=== PATIENT | male | born 1940 | race Caucasian/White ===

== ENCOUNTER → 2016-09-22 | Outpatient (CLI) | payer MEDICARE, OTHER | LOC: MW.CHIM 08:00 | PROVIDERS: ATTEND Internal Medicine | DX: I10 Essential (primary) hypertension (principal); J01.90 Acute sinusitis, unspecified; E03.9 Hypothyroidism, unspecified; R97.20 Elevated prostate specific antigen [PSA] | CPT/HCPCS: 99214 ==

== ENCOUNTER 2016-11-10 14:53 | Inpatient (IN) | payer MEDICARE, OTHER ==
[~2016-11-10 14:53] MED LIST: Ampicillin 2 GM in Sodium Chloride 0.9% 100 ML IV SCH; Ampicillin 2 GM in Sodium Chloride 0.9% 50 ML IV SCH; Lactated Ringers 1,000 ML IV SCH
[2016-11-10] MEDS: Ampicillin 2 GM in Sodium Chloride 0.9% 100 ML IV SCH ×3 (16:16→21:19)
[2016-11-11] MEDS: Ampicillin 2 GM in Sodium Chloride 0.9% 100 ML IV SCH ×4 (04:49→21:23)
[2016-11-11 05:48] LABS: CHLORIDE,CL 108 mmol/L (98-110); SODIUM,NA 141 mmol/L (136-146)
--- NOTE | 2016-11-11 10:45 | PCM.PREANE ---
Preanesthetic Assessment - Anesthesia/Transfusion/Family Hx Anesthesia History: Prior Anesthesia Without Reaction Family History of Anesthesia Reaction: No Transfusion History: No Prior Transfusion(s) - Review of Systems General: No Symptoms Pulmonary: No Symptoms Cardiovascular: No Symptoms Gastrointestinal: No symptoms Neurological: No Symptoms Other: Reports: None - Physical Assessment NPO Status Date: 11/10/16 O2 Sat by Pulse Oximetry: 92 Respiratory Rate: 16 Vital Signs: Last Vital Signs Temp 37.1 C 11/11/16 08:00 Pulse 74 11/11/16 08:00 Resp 16 11/11/16 08:00 BP 152/83 H 11/11/16 08:00 Pulse Ox 92 L 11/11/16 08:00 Height: 1.85 m Weight: 93.259 kg ASA Class: 2 Mental Status: Alert & Oriented x3 Airway Class: Mallampati = 3 ROM/Head Extension: Limited/Partial Lungs: Clear to auscultation, Normal respiratory effort Cardiovascular: Regular Rate, Regular Rhythm - Lab Values: Laboratory Last Values WBC 4.98 K/uL (4.0-11.0) 11/11/16 04:48 RBC 4.34 M/uL (4.50-5.90) L 11/11/16 04:48 Hgb 12.5 g/dL (13.0-17.0) L 11/11/16 04:48 Hct 39.6 % (38.0-50.0) 11/11/16 04:48 MCV 91.2 fL (80.0-98.0) 11/11/16 04:48 MCH 28.8 pg (27.0-32.0) 11/11/16 04:48 MCHC 31.6 g/dL (31.0-37.0) 11/11/16 04:48 RDW Std Deviation 43.6 fl (28.0-62.0) 11/11/16 04:48 RDW Coeff of Judy 13 % (11.0-15.0) 11/11/16 04:48 Plt Count 261 K/uL (150-400) 11/11/16 04:48 MPV 9.20 fL (7.40-12.00) 11/11/16 04:48 Neut % (Auto) 58.1 % (48.0-80.0) 11/11/16 04:48 Lymph % (Auto) 26.9 % (16.0-40.0) 11/11/16 04:48 [place] % (Auto) 9.0 % (0.0-15.0) 11/11/16 04:48 Eos % (Auto) 5.0 % (0.0-7.0) 11/11/16 04:48 Baso % (Auto) 1.0 % (0.0-1.5) 11/11/16 04:48 Neut # (Auto) 2.9 K/uL (1.4-5.7) 11/11/16 04:48 Lymph # (Auto) 1.3 K/uL (0.6-2.4) 11/11/16 04:48 [place] # (Auto) 0.5 K/uL (0.0-0.8) 11/11/16 04:48 Eos # (Auto) 0.3 K/uL (0.0-0.7) 11/11/16 04:48 Baso # (Auto) 0.1 K/uL (0.0-0.1) 11/11/16 04:48 Nucleated RBC % 0.0 /100WBC 11/11/16 04:48 Nucleated RBCs # 0 K/uL 11/11/16 04:48 Sodium 141 mmol/L (136-146) 11/11/16 04:48 Potassium 4.2 mmol/L (3.5-5.1) 11/11/16 04:48 Chloride 108 mmol/L (98-110) 11/11/16 04:48 Carbon Dioxide 26 mmol/L (21-31) 11/11/16 04:48 BUN 13 mg/dL (6.0-23.0) 11/11/16 04:48 Creatinine 0.8 mg/dL (0.6-1.5) 11/11/16 04:48 Est Cr Clr Drug Dosing 88.78 mL/min 11/11/16 04:48 Estimated GFR (MDRD) > 60.0 ml/min 11/11/16 04:48 Glucose 100 mg/dL (60-110) 11/11/16 04:48 Calcium 8.5 mg/dL (8.8-10.8) L 11/11/16 04:48 - Allergies Allergies/Adverse Reactions: Allergies Allergy/AdvReac Type Severity Reaction Status Date / Time shellfish derived Allergy Mild Swelling Verified 11/10/16 15:37 - Anesthesia Plan Pre-Op Medication Ordered: None - Acknowledgements Anesthesia Type Planned: Spinal Pt an Appropriate Candidate for the Planned Anesthesia: Yes Alternatives and Risks of Anesthesia Discussed w Pt/Guardian: Yes Pt/Guardian Understands and Agrees with Anesthesia Plan: Yes Additional Comments: PMH: mild to moderate , thyroid replacement, limitation of mouth opening and cervical extension PreAnesthesia Questionnaire HEENT History: Reports: Impaired Vision Gastrointestinal History: Reports: Diverticulosis Genitourinary History: Reports: BPH, Renal Calculus Endocrine/Metabolic History: Reports: Hypothyroidism Hematologic History: Reports: Anemia Other Hematologic History: Chronic iron deficiency - Infectious Disease History Infectious Disease History: Reports: Hepatitis non A,B,C, Mononucleosis, Mumps - Past Surgical History HEENT Surgical History: Reports: Adenoidectomy, Tonsillectomy GI Surgical History: Reports: Appendectomy, Colonoscopy Other GI Surgeries/Procedures: Colonoscopy X 3 (3 years ago latest) Endocrine Surgical History: Reports: None - SUBSTANCE USE Smoking Status *Q: Never Smoker Second Hand Smoke Exposure: No Days Per Week of Alcohol Use: 7 Number of Drinks Per Day: 2 Total Drinks Per Week: 14 Date of Last Drink: 11/10/16 Time of Last Drink: 21:00 Recreational Drug Use History: No - HOME MEDS Home Medications: Home Meds Aspirin [[place] Aspirin] 81 mg PO DAILY 09/28/14 [History] Omeprazole Magnesium [Prilosec Otc] 20 mg PO DAILY PRN 09/28/14 [History] Levothyroxine Sodium [Synthroid] 150 mcg PO DAILY 11/10/16 [History] Tamsulosin [Flomax] 0.4 mg PO BEDTIME 11/10/16 [History] - CURRENT (IN HOUSE) MEDS Current Meds: Current Medications Lactated Ringer's (Ringers, Lactated) 1,000 mls @ 50 mls/hr IV ASDIRECTED [facility] Last Admin: 11/10/16 16:15 Dose: 50 mls/hr Ampicillin Sodium 2 gm/ Sodium (Chloride) 100 mls @ 200 mls/hr IV Q6H [facility] Last Admin: 11/11/16 10:07 Dose: 200 mls/hr Tobramycin 120 mg/ Sodium (Chloride) 103 mls @ 100 mls/hr IV Q12H [facility] Last Admin: 11/11/16 06:14 Dose: 100 mls/hr Discontinued Medications Lactated Ringer's (Ringers, Lactated) 1,000 mls @ 50 mls/hr IV ASDIRECTED [facility] Tobramycin 120 mg/ Sodium (Chloride) 103 mls @ 100 mls/hr IV Q12HR ONE Stop: 10/22/16 01:02 Ampicillin Sodium 2 gm/ Sodium (Chloride) 100 mls @ 200 mls/hr IV Q6H LC Ampicillin Sodium 2 gm/ Sodium (Chloride) 100 mls @ 200 mls/hr IV Q6H [facility] Last Admin: 11/10/16 17:11 Dose: Not Given Tobramycin 120 mg/ Sodium (Chloride) 103 mls @ 100 mls/hr IV Q12HR ONE Stop: 11/11/16 09:01 Tobramycin 120 mg/ Sodium (Chloride) 103 mls @ 103 mls/hr IV Q12HR ONE Stop: 11/10/16 17:29 Last Admin: 11/10/16 17:00 Dose: 103 mls/hr
[2016-11-11] MEDS ORDERED: Lidocaine 2% 5 ML SDV ONE (11:32)
[2016-11-11] MEDS ORDERED: Midazolam 1 MG/ML 2 ML SDV ONE (11:33)
[2016-11-11] MEDS ORDERED: fentaNYL 100 MCG/2 ML SDV ONE (11:33)
[2016-11-11] MEDS ORDERED: Propofol 200 MG/20 ML SDV ONE ×2 (11:33→12:31)
[2016-11-11] MEDS ORDERED: ePHEDrine 50 MG/ML SDV ONE (11:33)
[2016-11-11] MEDS ORDERED: Phenylephrine/Normal Saline 100 MCG/ML 10 ML Syringe ONE (12:58)
--- NOTE | 2016-11-11 14:14 | PCM.POSTAN ---
POST ANESTHESIA ASSESSMENT - MENTAL STATUS Mental Status: alert, oriented - RESPIRATORY Respiratory Status: respiratory rate WNL, airway patent, O2 saturation stable - CARDIOVASCULAR CV Status: pulse rate WNL, blood pressure stable - GASTROINTESTINAL GI Status: no symptoms - PAIN Pain Score: 0 - POST OP HYDRATION Hydration Status: adequate & stable
--- NOTE | 2016-11-11 14:55 | OR ---
SURGEON: Rolando Grissom M.D. DATE OF PROCEDURE: 11/11/2016 PREOPERATIVE DIAGNOSIS: Benign prostatic hypertrophy with urinary retention. POSTOPERATIVE DIAGNOSIS: Benign prostatic hypertrophy with urinary retention. OPERATION: Transurethral resection of prostate. DESCRIPTION OF PROCEDURE: The patient was given spinal anesthesia, placed in dorsal lithotomy position, prepped and draped in sterile drapes. Urethral meatotomy had to be done to allow the 26-Danish resectoscope in the bladder. The prostate was resected in the usual manner starting on the floor of the prostatic urethra going on laterally and anteriorly. At the end of the resection, all prostatic chips were removed. Both the ureteral orifices were intact. The area of the external sphincter was intact. A 22, 3-way Jaime catheter with 60 mL in the balloon was left in the bladder connected to TUR drip. Estimated blood loss was 200 mL. The patient tolerated the procedure well and was moved to recovery room in good condition. CORRY / ELTON /[id number]
--- NOTE | 2016-11-11 16:39 | PCM48HPAN ---
Post Anesthesia Note - EVALUATION WITHIN 48HRS OF ANESTHETIC Vital Signs in Normal Range: Yes (BP is slightly elevated - nurse planning to call Dr. Grissom) Patient Participated in Evaluation: Yes Respiratory Function Stable: Yes Airway Patent: Yes Cardiovascular Function Stable: Yes Hydration Status Stable: Yes Pain Control Satisfactory: Yes Nausea and Vomiting Control Satisfactory: Yes Mental Status Recovered: Yes - COMMENTS/OBSERVATIONS Free Text/Narrative:: BP elevated since surgery - more comparable to last night's BPs. Pt's nurse will refer to Dr. Grissom for orders.
[2016-11-11] MEDS ORDERED: amLODIPine 5 MG Tab PO SCH (18:15)
[2016-11-11] MEDS: Levothyroxine 150 MCG Tab PO SCH (18:49)
--- NOTE | 2016-11-11 19:00 | PCM.CONS ---
H&P History of Present Illness - General Date of Service: 11/11/16 Admit Problem/Dx: Admission Diagnosis/Problem Admission Diagnosis/Problem Benign prostatic hyperplasia with urinary obstruction Source of Information: Patient, Family, Provider - History of Present Illness Initial Comments - Free Text/Narative: Our service was asked to consult for hypertension on this pleasant gentleman who underwent a transurethral resection of the prostate today by Dr. Grissom. He states that he was recently started on antihypertensive medicine by his primary outpatient attending physician, Dr Jules. He stopped the medicine ( he cannot remember what it was) because it seemed to cause a cough. He was noted to by hypertensive post operatively today with nursing staff reporting systolic blood pressure as high as 190 mm Hg. He denies chest pain or dyspnea. No stroke like symptoms. - Related Data Allergies/Adverse Reactions: Allergies Allergy/AdvReac Type Severity Reaction Status Date / Time shellfish derived Allergy Mild Swelling Verified 11/10/16 15:37 Home Medications: Home Meds Aspirin [[place] Aspirin] 81 mg PO DAILY 09/28/14 [History] Omeprazole Magnesium [Prilosec Otc] 20 mg PO DAILY PRN 09/28/14 [History] Levothyroxine Sodium [Synthroid] 150 mcg PO DAILY 11/10/16 [History] Tamsulosin [Flomax] 0.4 mg PO BEDTIME 11/10/16 [History] Past Medical History HEENT History: Reports: Impaired Vision Cardiovascular History: Denies: Afib, Cardiomyopathy, Heart Failure, Heart Valve Replacement, [place] Respiratory History: Denies: COPD Gastrointestinal History: Reports: Diverticulosis Genitourinary History: Reports: BPH, Renal Calculus Neurological History: Denies: Brain Injury, CVA, MS Endocrine/Metabolic History: Reports: Hypothyroidism. Denies: Sherif's Disease , Diabetes, Type II Hematologic History: Reports: Anemia Other Hematologic History: Chronic iron deficiency Oncologic (Cancer) History: Reports: None - Infectious Disease History Infectious Disease History: Reports: Hepatitis non A,B,C, Mononucleosis, Mumps - Past Surgical History HEENT Surgical History: Reports: Adenoidectomy, Tonsillectomy GI Surgical History: Reports: Appendectomy, Colonoscopy Other GI Surgeries/Procedures: Colonoscopy X 3 (3 years ago latest) Endocrine Surgical History: Reports: None Social & Family History - Family History Family Medical History: Noncontributory - Tobacco Use Smoking Status *Q: Never Smoker Second Hand Smoke Exposure: No - Caffeine Use Caffeine Use: Reports: Coffee, Soda - Alcohol Use Days Per Week of Alcohol Use: 7 Number of Drinks Per Day: 2 Total Drinks Per Week: 14 Date of Last Drink: 11/10/16 Time of Last Drink: 21:00 - Recreational Drug Use Recreational Drug Use: No Drug Use in Last 12 Months: No H&P Review of Systems - Review of Systems: Review Of Systems: See Below General: Denies: Fever, Chills Pulmonary: Denies: Shortness of Breath, Cough, Sputum Cardiovascular: Denies: Chest Pain Gastrointestinal: Denies: Black Stool, Difficulty Swallowing, Nausea, Stool Incontinence Skin: Denies: Jaundice Psychiatric: Denies: Agitation Exam - Exam Exam: See Below - Vital Signs Vital Signs: Last Vital Signs Temp 96.7 F 11/11/16 15:30 Pulse 91 11/11/16 17:30 Resp 16 11/11/16 17:30 BP 172/79 H 11/11/16 18:25 Pulse Ox 93 L 11/11/16 17:30 Weight: 93.259 kg - Exam General: Alert, Oriented, Cooperative HEENT: EOMI Neck: Supple, Trachea Midline Lungs: Clear to Auscultation, Normal Respiratory Effort Cardiovascular: Regular Rate, Regular Rhythm, Other (2/6 systolic m decreases with inspiration c/w innocent pulmonic flow murmur) Abdomen: Soft. No: Distention, Tenderness Rectal (Males) Exam: Deferred Extremities: Other (trace ankle edema) Neurological: Cranial Nerves Intact, Normal Speech Neuro Extensive - Mental Status: Normal Mood/Affect - Patient Data Lab Results Last 24 hrs: Laboratory Results - last 24 hr 11/11/16 11/11/16 Range/Units 04:48 04:48 WBC 4.98 (4.0-11.0) K/uL RBC 4.34 L (4.50-5.90) M/uL Hgb 12.5 L (13.0-17.0) g/dL Hct 39.6 (38.0-50.0) % MCV 91.2 (80.0-98.0) fL MCH 28.8 (27.0-32.0) pg MCHC 31.6 (31.0-37.0) g/dL RDW Std Deviation 43.6 (28.0-62.0) fl RDW Coeff of Judy 13 (11.0-15.0) % Plt Count 261 (150-400) K/uL MPV 9.20 (7.40-12.00) fL Neut % (Auto) 58.1 (48.0-80.0) % Lymph % (Auto) 26.9 (16.0-40.0) % [place] % (Auto) 9.0 (0.0-15.0) % Eos % (Auto) 5.0 (0.0-7.0) % Baso % (Auto) 1.0 (0.0-1.5) % Neut # (Auto) 2.9 (1.4-5.7) K/uL Lymph # (Auto) 1.3 (0.6-2.4) K/uL [place] # (Auto) 0.5 (0.0-0.8) K/uL Eos # (Auto) 0.3 (0.0-0.7) K/uL Baso # (Auto) 0.1 (0.0-0.1) K/uL Nucleated RBC % 0.0 /100WBC Nucleated RBCs # 0 K/uL Sodium 141 (136-146) mmol/L Potassium 4.2 (3.5-5.1) mmol/L Chloride 108 (98-110) mmol/L Carbon Dioxide 26 (21-31) mmol/L BUN 13 (6.0-23.0) mg/dL Creatinine 0.8 (0.6-1.5) mg/dL Est Cr Clr Drug Dosing 88.78 mL/min Estimated GFR (MDRD) > 60.0 ml/min Glucose 100 (60-110) mg/dL Calcium 8.5 L (8.8-10.8) mg/dL Result Diagrams: 11/11/16 04:48 11/11/16 04:48 Consult PN Assessment/Plan Procedures: Procedures ASSAY OF AMYLASE (10/06/16) ASSAY OF FREE THYROXINE (11/26/15) ASSAY OF IRON (06/25/15) ASSAY THYROID STIM HORMONE (11/26/15) C-REACTIVE PROTEIN (10/06/16) COLONOSCOPY AND BIOPSY (10/17/14) COMPLETE CBC AUTOMATED (09/22/13) COMPLETE CBC W/AUTO DIFF WBC (10/06/16) COMPREHEN METABOLIC PANEL (10/06/16) CT ABD & PELVIS W/O CONTRAST (10/07/16) DESTRUCT B9 LESION 1-14 (12/11/15) DESTRUCT PREMALG LESION (12/11/15) EXC TR-EXT B9+SARA 0.6-1 CM (11/02/14) IRON BINDING TEST (04/24/15) LIPID PANEL (06/25/15) METABOLIC PANEL TOTAL CA (10/13/16) OCCULT BLOOD FECES (05/03/15) OFFICE/OUTPATIENT VISIT EST (04/24/15) OFFICE/OUTPATIENT VISIT EST (09/22/13) OFFICE/OUTPATIENT VISIT NEW (12/11/15) RBC SED RATE AUTOMATED (10/06/16) ROUTINE VENIPUNCTURE (10/13/16) TTE W/DOPPLER COMPLETE (09/05/14) URINALYSIS AUTO W/SCOPE (10/07/16) (1) Essential hypertension SNOMED Code(s): 37342944 Code(s): I10 - ESSENTIAL (PRIMARY) HYPERTENSION Current Visit: Yes (2) Status post recent transurethral resection of prostate SNOMED Code(s): 308944485, 203241205 Code(s): Z98.890 - OTHER SPECIFIED POSTPROCEDURAL STATES Current Visit: Yes Problem List Initiated/Reviewed/Updated: Yes My Orders last 24 hours: My Active Orders 11/12/16 09:00 Omeprazole 20 mg PO DAILY amLODIPine [Norvasc] 5 mg PO BID 11/13/16 05:11 LIPID PANEL [CHEM] AM Plan: He has been started on amlodipine 5 mg bid. We will monitor blood pressure response. I have discussed the importance of treatment of asymptomatic hypertension. Further outpatient follow up regarding HTN with Dr Jules planned. Raymundo Kim MD
[2016-11-11] MEDS ORDERED: Sodium Chloride 0.9% 2.5 ML Syringe FLUSH PRN (20:24)
[2016-11-11] MEDS ORDERED: Sodium Chloride 0.9% 10 ML Syringe FLUSH PRN (20:24)
[2016-11-11] MEDS: Acetaminophen 325 MG Tab PO PRN (21:23)
[2016-11-12] MEDS: Ampicillin 2 GM in Sodium Chloride 0.9% 100 ML IV SCH ×4 (03:52→22:22)
[2016-11-12] MEDS: Levothyroxine 150 MCG Tab PO SCH (06:21)
[2016-11-12] MEDS ORDERED: amLODIPine 5 MG Tab PO SCH (09:00)
[2016-11-12] MEDS: Omeprazole 20 MG Cap.CR PO SCH (09:22)
--- NOTE | 2016-11-12 10:55 | PCM.PN ---
- General Info Date of Service: 11/12/16 Subjective Update: no specific complaints - Patient Data Vitals - most recent: Last Vital Signs Temp 96.8 F 11/12/16 08:00 Pulse 93 11/12/16 08:00 Resp 16 11/12/16 08:00 BP 177/92 H 11/12/16 09:22 Pulse Ox 93 L 11/12/16 08:00 Weight - most recent: 93.259 kg I&O - last 24 hours: Intake & Output 11/11/16 11/12/16 11/12/16 22:59 06:59 14:59 Intake Total 150 953 Output Total 3650 5341 Balance -9891 -6584 Med Orders - Current: Current Medications Acetaminophen (Tylenol) 650 mg PO Q3H PRN PRN Reason: Pain Last Admin: 11/11/16 21:23 Dose: 650 mg Amlodipine Besylate (Norvasc) 10 mg PO BID [facility] Ampicillin Sodium 2 gm/ Sodium (Chloride) 100 mls @ 200 mls/hr IV Q6H [facility] Last Admin: 11/12/16 09:34 Dose: 200 mls/hr Tobramycin 120 mg/ Sodium (Chloride) 103 mls @ 100 mls/hr IV Q12H [facility] Last Admin: 11/12/16 05:23 Dose: 100 mls/hr Levothyroxine Sodium (Levothyroxine) 150 mcg PO DAILY@0700 [facility] Last Admin: 11/12/16 06:21 Dose: 150 mcg Omeprazole (Omeprazole) 20 mg PO DAILY [facility] Last Admin: 11/12/16 09:22 Dose: 20 mg Sodium Chloride (Saline Flush) 10 ml FLUSH ASDIRECTED PRN PRN Reason: Keep Vein Open Sodium Chloride (Saline Flush) 2.5 ml FLUSH ASDIRECTED PRN PRN Reason: Keep Vein Open Triamterene/HCTZ (Maxzide 25-37.5 Mg) 1 each PO DAILY [facility] Discontinued Medications Amlodipine Besylate (Norvasc) 5 mg PO DAILY [facility] Last Admin: 11/11/16 18:25 Dose: 5 mg Amlodipine Besylate (Norvasc) 5 mg PO BID [facility] Last Admin: 11/12/16 09:22 Dose: 5 mg Ephedrine Sulfate (Ephedrine Sulfate) Confirm Administered Dose 50 mg .ROUTE .STK-MED ONE Stop: 11/11/16 11:34 Fentanyl (Sublimaze) Confirm Administered Dose 100 mcg .ROUTE .STK-MED ONE Stop: 11/11/16 11:34 Lactated Ringer's (Ringers, Lactated) 1,000 mls @ 50 mls/hr IV ASDIRECTED [facility] Tobramycin 120 mg/ Sodium (Chloride) 103 mls @ 100 mls/hr IV Q12HR ONE Stop: 10/22/16 01:02 Ampicillin Sodium 2 gm/ Sodium (Chloride) 100 mls @ 200 mls/hr IV Q6H [facility] Lactated Ringer's (Ringers, Lactated) 1,000 mls @ 50 mls/hr IV ASDIRECTED [facility] Last Admin: 11/10/16 16:15 Dose: 50 mls/hr Ampicillin Sodium 2 gm/ Sodium (Chloride) 100 mls @ 200 mls/hr IV Q6H [facility] Last Admin: 11/10/16 17:11 Dose: Not Given Tobramycin 120 mg/ Sodium (Chloride) 103 mls @ 100 mls/hr IV Q12HR ONE Stop: 11/11/16 09:01 Tobramycin 120 mg/ Sodium (Chloride) 103 mls @ 103 mls/hr IV Q12HR ONE Stop: 11/10/16 17:29 Last Admin: 11/10/16 17:00 Dose: 103 mls/hr Lidocaine (Xylocaine-Mpf 2%) Confirm Administered Dose 5 ml .ROUTE .STK-MED ONE Stop: 11/11/16 11:33 Midazolam HCl (Versed 1 Mg/Ml) Confirm Administered Dose 2 mg .ROUTE .STK-MED ONE Stop: 11/11/16 11:34 Phenylephrine HCl (Phenylephrine In Ns 100 Mcg/Ml) Confirm Administered Dose 1 mg .ROUTE .STK-MED ONE Stop: 11/11/16 12:59 Propofol (Diprivan 20 Ml) Confirm Administered Dose 200 mg .ROUTE .STK-MED ONE Stop: 11/11/16 11:34 Propofol (Diprivan 20 Ml) Confirm Administered Dose 200 mg .ROUTE .STK-MED ONE Stop: 11/11/16 12:32 - Exam General: alert, oriented Lungs: Clear to auscultation, Normal respiratory effort Cardiovascular: Regular Rate, Regular Rhythm Extremities: other (possible trace ankle edema) - Problem List & Annotations (1) Essential hypertension SNOMED Code(s): 47027070 Code(s): I10 - ESSENTIAL (PRIMARY) HYPERTENSION Status: Acute Current Visit: Yes (2) Status post recent transurethral resection of prostate SNOMED Code(s): 913849409, 409916747 Code(s): Z98.890 - OTHER SPECIFIED POSTPROCEDURAL STATES Status: Acute Current Visit: Yes - Problem List Review Problem List Initiated/Reviewed/Updated: Yes - My Orders Last 24 Hours: My Active Orders 11/12/16 09:00 Omeprazole 20 mg PO DAILY 11/12/16 10:47 amLODIPine [Norvasc] 10 mg PO BID 11/12/16 11:00 HCTZ/Triamterene [Maxzide 25-37.5 MG] 1 each PO DAILY 11/13/16 05:11 CMP [COMPREHENSIVE METABOLIC PN,CMP] [CHEM] AM LIPID PANEL [CHEM] AM - Plan Plan:: 11/12/2016 add maxzide; increase norvasc to 10 mg po bid MD Verna
[2016-11-12] MEDS: Hydrochlorothiazide/Triamterene 25-37.5 Tab PO SCH (11:02)
[2016-11-12] MEDS: amLODIPine 5 MG Tab PO SCH (21:37)
[2016-11-12] MEDS: Acetaminophen 325 MG Tab PO PRN (22:20)
[2016-11-13] MEDS: Ampicillin 2 GM in Sodium Chloride 0.9% 100 ML IV SCH ×3 (04:33→09:06)
[2016-11-13 05:54] LABS: CHLORIDE,CL 104 mmol/L (98-110); SODIUM,NA 138 mmol/L (136-146)
[2016-11-13] MEDS: Levothyroxine 150 MCG Tab PO SCH (06:44)
[2016-11-13] MEDS: Hydrochlorothiazide/Triamterene 25-37.5 Tab PO SCH (08:58)
[2016-11-13] MEDS: amLODIPine 5 MG Tab PO SCH (08:58)
[2016-11-13] MEDS: Omeprazole 20 MG Cap.CR PO SCH (08:59)
--- NOTE | 2016-11-13 11:01 | PCM.PN ---
- General Info Date of Service: 11/13/16 Functional Status: Reports: pain controlled, tolerating diet, ambulating. Denies: urinating - Review of Systems General: Reports: No Symptoms Pulmonary: Reports: no symptoms Cardiovascular: Reports: No Symptoms Gastrointestinal: Reports: No symptoms Musculoskeletal: Reports: no symptoms Skin: Reports: no symptoms Neurological: Reports: No Symptoms Psychiatric: Reports: no symptoms - Patient Data Vitals - most recent: Last Vital Signs Temp 97.9 F 11/13/16 08:00 Pulse 88 11/13/16 08:00 Resp 22 H 11/13/16 08:00 BP 117/71 11/13/16 08:58 Pulse Ox 95 11/13/16 08:00 Weight - most recent: 93.259 kg I&O - last 24 hours: Intake & Output 11/12/16 11/13/16 11/13/16 22:59 06:59 14:59 Intake Total 850 896 Output Total 1950 1450 Balance -1100 -554 Lab Results last 24 hrs: Laboratory Results - last 24 hr 11/13/16 Range/Units 04:38 Sodium 138 (136-146) mmol/L Potassium 3.9 (3.5-5.1) mmol/L Chloride 104 (98-110) mmol/L Carbon Dioxide 29 (21-31) mmol/L BUN 7 (6.0-23.0) mg/dL Creatinine 0.8 (0.6-1.5) mg/dL Est Cr Clr Drug Dosing 88.78 mL/min Estimated GFR (MDRD) > 60.0 ml/min Glucose 106 (60-110) mg/dL Calcium 9.0 (8.8-10.8) mg/dL Total Bilirubin 0.7 (0.1-1.5) mg/dL AST 12 (5-40) IU/L ALT 9 (8-54) IU/L Alkaline Phosphatase 76 (40-150) Total Protein 6.4 (6.0-8.0) g/dL Albumin 3.5 (3.4-4.8) g/dL Globulin 2.9 (2.0-3.5) g/dL Albumin/Globulin Ratio 1.2 L (1.3-2.8) Triglycerides 84 (10-190) mg/dL Cholesterol 179 (131-240) mg/dL LDL Cholesterol, Calc 120 (60-180) mg/dL VLDL Cholesterol 17 (5-55) mg/dL HDL Cholesterol 42 (40-80) mg/dL Cholesterol/HDL Ratio 4.3 (3.3-6.0) Med Orders - Current: Current Medications Acetaminophen (Tylenol) 650 mg PO Q3H PRN PRN Reason: Pain Last Admin: 11/12/16 22:20 Dose: 650 mg Amlodipine Besylate (Norvasc) 10 mg PO BID [facility] Last Admin: 11/13/16 08:58 Dose: 10 mg Ampicillin Sodium 2 gm/ Sodium (Chloride) 100 mls @ 200 mls/hr IV Q6H [facility] Last Admin: 11/13/16 09:06 Dose: Not Given Tobramycin 120 mg/ Sodium (Chloride) 103 mls @ 100 mls/hr IV Q12H [facility] Last Admin: 11/13/16 05:44 Dose: 100 mls/hr Levothyroxine Sodium (Levothyroxine) 150 mcg PO DAILY@0700 [facility] Last Admin: 11/13/16 06:44 Dose: 150 mcg Omeprazole (Omeprazole) 20 mg PO DAILY [facility] Last Admin: 11/13/16 08:59 Dose: 20 mg Sodium Chloride (Saline Flush) 10 ml FLUSH ASDIRECTED PRN PRN Reason: Keep Vein Open Sodium Chloride (Saline Flush) 2.5 ml FLUSH ASDIRECTED PRN PRN Reason: Keep Vein Open Triamterene/HCTZ (Maxzide 25-37.5 Mg) 1 each PO DAILY [facility] Last Admin: 11/13/16 08:58 Dose: 1 each Discontinued Medications Amlodipine Besylate (Norvasc) 5 mg PO DAILY [facility] Last Admin: 11/11/16 18:25 Dose: 5 mg Amlodipine Besylate (Norvasc) 5 mg PO BID [facility] Last Admin: 11/12/16 09:22 Dose: 5 mg Ephedrine Sulfate (Ephedrine Sulfate) Confirm Administered Dose 50 mg .ROUTE .STK-MED ONE Stop: 11/11/16 11:34 Fentanyl (Sublimaze) Confirm Administered Dose 100 mcg .ROUTE .STK-MED ONE Stop: 11/11/16 11:34 Lactated Ringer's (Ringers, Lactated) 1,000 mls @ 50 mls/hr IV ASDIRECTED [facility] Tobramycin 120 mg/ Sodium (Chloride) 103 mls @ 100 mls/hr IV Q12HR ONE Stop: 10/22/16 01:02 Ampicillin Sodium 2 gm/ Sodium (Chloride) 100 mls @ 200 mls/hr IV Q6H [facility] Lactated Ringer's (Ringers, Lactated) 1,000 mls @ 50 mls/hr IV ASDIRECTED [facility] Last Admin: 11/10/16 16:15 Dose: 50 mls/hr Ampicillin Sodium 2 gm/ Sodium (Chloride) 100 mls @ 200 mls/hr IV Q6H [facility] Last Admin: 11/10/16 17:11 Dose: Not Given Tobramycin 120 mg/ Sodium (Chloride) 103 mls @ 100 mls/hr IV Q12HR ONE Stop: 11/11/16 09:01 Tobramycin 120 mg/ Sodium (Chloride) 103 mls @ 103 mls/hr IV Q12HR ONE Stop: 11/10/16 17:29 Last Admin: 11/10/16 17:00 Dose: 103 mls/hr Lidocaine (Xylocaine-Mpf 2%) Confirm Administered Dose 5 ml .ROUTE .STK-MED ONE Stop: 11/11/16 11:33 Midazolam HCl (Versed 1 Mg/Ml) Confirm Administered Dose 2 mg .ROUTE .STK-MED ONE Stop: 11/11/16 11:34 Phenylephrine HCl (Phenylephrine In Ns 100 Mcg/Ml) Confirm Administered Dose 1 mg .ROUTE .STK-MED ONE Stop: 11/11/16 12:59 Propofol (Diprivan 20 Ml) Confirm Administered Dose 200 mg .ROUTE .STK-MED ONE Stop: 11/11/16 11:34 Propofol (Diprivan 20 Ml) Confirm Administered Dose 200 mg .ROUTE .STK-MED ONE Stop: 11/11/16 12:32 - Exam General: alert, oriented HEENT: Pupils equal, EOMI Neck: supple, trachea midline Lungs: Clear to auscultation Cardiovascular: Regular Rate, Regular Rhythm Abdomen: bowel sounds present, soft Back Exam: Normal Inspection Extremities: no edema - Problem List Review Problem List Initiated/Reviewed/Updated: Yes - Plan Plan:: HTN: controlled continue maxzide and norvasc 10 mg po bid
[2016-11-13] MEDS: Acetaminophen 325 MG Tab PO PRN (12:39)
[2016-11-13 12:59] VITALS: BP 124/79
--- NOTE | 2017-01-28 04:31 | DISCH ---
DATE OF DISCHARGE: 11/13/2016 PRIMARY CARE PHYSICIAN: Aravind PCP HOSPITAL COURSE: Mr. Leos is 76 years old, who was admitted to the hospital on 11/10/2016 and had a TURP done. Postoperatively, did very well. Remained stable. Pathology showed benign prostate tissue. He was discharged on third postoperative day. CORRY CONDE /[id number]
== END 2016-11-13 15:25 | disposition home or self-care (01) | DRG 726 ==
LOC: MW.MS 14:53 → MW.SDS 14:53 → UNDOADMIN 16:04 → MW.MS 16:04 → UNDODISIN 11-13 15:25
PROVIDERS: ADMIT Urology; ATTEND Urology
DX: N40.1 Benign prostatic hyperplasia with lower urinary tract symptoms (principal); N13.8 Other obstructive and reflux uropathy; R33.8 Other retention of urine; I10 Essential (primary) hypertension; Z86.010 Personal history of colon polyps; Z79.899 Other long term (current) drug therapy; K21.9 Gastro-esophageal reflux disease without esophagitis; D64.9 Anemia, unspecified; E03.9 Hypothyroidism, unspecified; Z87.891 Personal history of nicotine dependence
CPT/HCPCS: 00914; 36415; 80048; 80053; 80061; 85025; 88305; A9270-GY; C1769; J0290; J2250; J2704; J3010; J3260; J7030; J7120

== ENCOUNTER 2017-05-18 08:39 | Day surgery (SDC) | payer MEDICARE, OTHER ==
[~2017-05-18 08:39] MED LIST changes: -Ampicillin 2 GM in Sodium Chloride 0.9% 100 ML IV SCH; -Ampicillin 2 GM in Sodium Chloride 0.9% 50 ML IV SCH; +Bupivacaine 0.5% 10 ML SDV ONE; +Lidocaine 2% 5 ML SDV ONE; +Midazolam 1 MG/ML 2 ML SDV ONE; +Ondansetron 4 MG/2 ML SDV ONE; +Propofol 200 MG/20 ML SDV ONE; +ceFAZolin 1 GM Vial ONE; +ceFAZolin 2 GM in Premix Bag 1 BAG IV SCH; +fentaNYL 100 MCG/2 ML SDV ONE
--- NOTE | 2017-05-18 09:08 | PCM.PREANE ---
Preanesthetic Assessment - Anesthesia/Transfusion/Family Hx Anesthesia History: Prior Anesthesia Without Reaction Family History of Anesthesia Reaction: No Transfusion History: No Prior Transfusion(s) Intubation History: Unknown - Review of Systems General: No Symptoms Pulmonary: No Symptoms Cardiovascular: No Symptoms Gastrointestinal: No Symptoms Neurological: No Symptoms Other: Reports: None - Physical Assessment Height: 1.85 m Weight: 94.801 kg ASA Class: 3 Mental Status: Alert & Oriented x3 Airway Class: Mallampati = 2 Dentition: Reports: Normal Dentition Thyro-Mental Finger Breadths: 3 Mouth Opening Finger Breadths: 2 ROM/Head Extension: Limited/Partial Lungs: Clear to Auscultation, Normal Respiratory Effort Cardiovascular: Regular Rate, Regular Rhythm - Allergies Allergies/Adverse Reactions: Allergies Allergy/AdvReac Type Severity Reaction Status Date / Time shellfish derived Allergy Mild Swelling Verified 05/14/17 08:09 - Blood Blood Available: No - Anesthesia Plan Pre-Op Medication Ordered: None - Acknowledgements Anesthesia Type Planned: General Anesthesia Pt an Appropriate Candidate for the Planned Anesthesia: Yes Alternatives and Risks of Anesthesia Discussed w Pt/Guardian: Yes Pt/Guardian Understands and Agrees with Anesthesia Plan: Yes PreAnesthesia Questionnaire HEENT History: Reports: Impaired Vision, Other (See Below) Other HEENT History: wears glasses Cardiovascular History: Reports: Heart Murmur, Hypertension, Other (See Below) ( aortic stenosis- cardiac ECHO '15 moderate stenosis, he can walk 2 block withiout problems- no change since 2014) Respiratory History: Reports: Other (See Below) Other Respiratory History: allergy induced asthma symptoms Gastrointestinal History: Reports: Colon Polyp, Diverticulosis, GERD Genitourinary History: Reports: BPH, Renal Calculus Musculoskeletal History: Reports: Other (See Below) Other Musculoskeletal History: hx cracked ribs Endocrine/Metabolic History: Reports: Hypothyroidism Hematologic History: Reports: Anemia Other Hematologic History: Chronic iron deficiency Oncologic (Cancer) History: Reports: None - Infectious Disease History Infectious Disease History: Reports: Hepatitis non A,B,C, Mononucleosis, Mumps - Past Surgical History Head Surgeries/Procedures: Reports: None HEENT Surgical History: Reports: Adenoidectomy, Tonsillectomy GI Surgical History: Reports: Appendectomy, Colonoscopy Other GI Surgeries/Procedures: Colonoscopy X 3 Male Surgical History: Reports: TURP-Transurethral Resection of Prostate Endocrine Surgical History: Reports: None - SUBSTANCE USE Smoking Status *Q: Former Smoker (quit 20 years ago) Second Hand Smoke Exposure: No Days Per Week of Alcohol Use: 7 Number of Drinks Per Day: 2 Total Drinks Per Week: 14 Recreational Drug Use History: No - HOME MEDS Home Medications: Home Meds Aspirin [George Aspirin] 81 mg PO DAILY 09/28/14 [History] Omeprazole Magnesium [Prilosec Otc] 20 mg PO DAILY PRN 09/28/14 [History] Levothyroxine Sodium [Synthroid] 150 mcg PO DAILY 11/10/16 [History] Tamsulosin [Flomax] 0.4 mg PO BEDTIME 11/10/16 [History] Calcium Carbonate/Vitamin D3 [Calcium 600-Vit D3 400 Tablet] 1 tab PO DAILY 03/21 [History] Iron Polysaccharides Complex [Ferrex 150] 1 tab PO BID 05/14/17 [History] Multivitamin [Multivitamins] 1 tab PO DAILY 05/14/17 [History] amLODIPine [Norvasc] 10 mg PO BEDTIME 05/14/17 [History] - CURRENT (IN HOUSE) MEDS Current Meds: Current Medications Cefazolin Sodium/Dextrose 2 gm (/ Premix) 50 mls @ 100 mls/hr IV ONETIME LC Lactated Ringer's (Ringers, Lactated) 1,000 mls @ 125 mls/hr IV ASDIRECTED LC Discontinued Medications Bupivacaine HCl (Sensorcaine-Mpf 0.5%) Confirm Administered Dose 10 ml .ROUTE .STK-MED ONE Stop: 05/18/17 07:23 Cefazolin Sodium (Ancef) Confirm Administered Dose 1 gm .ROUTE .STK-MED ONE Stop: 05/18/17 07:23 Fentanyl (Sublimaze) Confirm Administered Dose 200 mcg .ROUTE .STK-MED ONE Stop: 05/18/17 07:05 Lidocaine (Xylocaine-Mpf 2%) Confirm Administered Dose 5 ml .ROUTE .STK-MED ONE Stop: 05/18/17 07:05 Midazolam HCl (Versed 1 Mg/Ml) Confirm Administered Dose 2 mg .ROUTE .STK-MED ONE Stop: 05/18/17 07:05 Ondansetron HCl (Zofran) Confirm Administered Dose 4 mg .ROUTE .STK-MED ONE Stop: 05/18/17 07:05 Propofol (Diprivan 20 Ml) Confirm Administered Dose 200 mg .ROUTE .[facility] ONE Stop: 05/18/17 07:05
[2017-05-18] MEDS ORDERED: Etomidate 2 MG/ML 20 ML SDV IVPUSH ONE (09:21)
[2017-05-18] MEDS ORDERED: Sodium Chloride 0.9% 20 ML ONE (09:26)
[2017-05-18] MEDS ORDERED: ceFAZolin 1 GM Vial ONE (09:26)
[2017-05-18] MEDS ORDERED: Glycopyrrolate 0.2 MG/ML SDV ONE (09:31)
[2017-05-18] MEDS ORDERED: Phenylephrine/Normal Saline 100 MCG/ML 10 ML Syringe ONE (09:31)
[2017-05-18] MEDS ORDERED: Ondansetron 4 MG/2 ML SDV IVPUSH PRN (10:28)
[2017-05-18] MEDS ORDERED: Acetaminophen/HYDROcodone 325-5 MG Tab PO PRN (10:28)
[2017-05-18] MEDS ORDERED: Morphine 10 MG/ML Syringe IVPUSH PRN (10:28)
[2017-05-18] MEDS ORDERED: Lactated Ringers 1,000 ML IV SCH (10:30)
--- NOTE | 2017-05-18 10:34 | PCM.OPNOTE ---
- General Post-Op/Procedure Note Date of Surgery/Procedure: 05/18/17 Operative Procedure(s): Repair incarcerated left inguinal hernia with large Bard PerFix plug and patch Pre Op Diagnosis: Incarcerated left inguinal hernia Post-Op Diagnosis: Same Anesthesia Technique: General LMA (ASA III) Primary Surgeon: James Calzada Fluid Replacement, Intraop: 1,000 EBL in mLs: 10 Condition: Good Free Text/Narrative:: Dictation [id number] CPT CODE [id number]
--- NOTE | 2017-05-18 11:03 | PCM.POSTAN ---
POST ANESTHESIA ASSESSMENT - MENTAL STATUS Mental Status: Alert, Oriented - RESPIRATORY Respiratory Status: Respiratory Rate WNL, Airway Patent, O2 Saturation Stable - CARDIOVASCULAR CV Status: Pulse Rate WNL, Blood Pressure Stable - GASTROINTESTINAL GI Status: No Symptoms - PAIN Pain Score: 3 - POST OP HYDRATION Hydration Status: Adequate & Stable - OBSERVATIONS Free Text/Narrative:: no anesthesia problems
[2017-05-18 13:18] VITALS: BP 143/77
--- NOTE | 2017-05-18 18:32 | OR ---
SURGEON: James Calzada M.D. DATE OF PROCEDURE: 05/18/2017 OPERATION PERFORMED: Repair incarcerated left inguinal hernia with large Bard PerFix plug and patch. ANESTHESIA: General LMA. ASA CLASSIFICATION: III. PREOPERATIVE DIAGNOSIS: Symptomatic left inguinal hernia. POSTOPERATIVE DIAGNOSIS: Symptomatic left inguinal hernia. ESTIMATED BLOOD LOSS: 10 mL. INTRAOPERATIVE FLUID REPLACEMENT: 1000 mL of crystalloid. DESCRIPTION OF PROCEDURE: The patient was taken to the operating room and placed on the operating table in the supine position. Time-out was called for appropriate identification of the patient and procedure. Thigh-high TEDs and sequential compression boots were placed. Following satisfactory attainment of general anesthesia with placement of an LMA, the abdomen was prepped with ChloraPrep solution and sterile drapes were applied. The skin incision was marked out on the left inguinal crease and then infiltrated with 10 mL of 0.5% Marcaine solution. Skin incision was made and deepened through the subcutaneous tissue obtaining hemostasis with the use of electrocautery. Dissection was carried down to the external oblique fascia, which was opened in the direction of its fibers. The spermatic cord was mobilized and the hernia sac identified and dissected away from the spermatic cord. The hernia sac was then able to be reduced. A large Bard PerFix plug and patch was brought to the operating table and soaked in 1% Ancef solution. The plug was then placed into the internal ring and secured with 0 Ethibond sutures. The patch was placed over the inguinal floor and secured medially and superiorly to the transversalis fascia and medially and inferiorly to Angel's ligament transitioning to the inguinal ligament. The wings of the patch were brought around the cord and secured laterally again with 0 Ethibond suture. All sutures were then tied down. The patient was given a Valsalva maneuver to 30 cm of water. The repair was solid. The wound was irrigated with 1% Ancef solution. The cord was returned to its anatomic location. The external oblique fascia was then reapproximated with running 3-0 Polysorb. Subcutaneous tissue was closed with 0 Vicryl. The skin edges were reapproximated with subcuticular 4-0 Monocryl reinforced with Steri-Strips. Incision was dressed with a sterile Tegaderm pad. Sponge, needle, and instrument counts were all correct. The patient tolerated the procedure well. Following emergence from anesthesia and extubation, the patient was taken to recovery room in stable condition. ANDEWAY / ELTON /[id number]
== END 2017-05-18 12:50 | disposition home or self-care (01) ==
LOC: MW.SDS 08:39
PROVIDERS: ATTEND Surgery
DX: K40.90 Unilateral inguinal hernia, without obstruction or gangrene, not specified as recurrent (principal); I10 Essential (primary) hypertension; I35.0 Nonrheumatic aortic (valve) stenosis; K21.9 Gastro-esophageal reflux disease without esophagitis; D50.9 Iron deficiency anemia, unspecified; M19.90 Unspecified osteoarthritis, unspecified site; N40.1 Benign prostatic hyperplasia with lower urinary tract symptoms; R33.8 Other retention of urine; Z86.010 Personal history of colon polyps; Z87.891 Personal history of nicotine dependence; Z91.013 Allergy to seafood; Z87.442 Personal history of urinary calculi; Z79.82 Long term (current) use of aspirin; Z79.899 Other long term (current) drug therapy; Z90.49 Acquired absence of other specified parts of digestive tract; Z90.79 Acquired absence of other genital organ(s); Z98.890 Other specified postprocedural states
CPT/HCPCS: 49505; A9270; C1781; J0690; J2250; J2405; J3010; J7120; 00830; J2704